=== PATIENT | female | born 1985 | race American Indian/Alaskan Native ===

== ENCOUNTER 2019-05-17 04:09 | Emergency (ER) | payer SELFPAY ==
[2019-05-17 04:27] VITALS: BP 102/67
== END 2019-05-17 08:00 | disposition left against medical advice (07) ==
LOC: ED 04:09
DX: R22.0 Localized swelling, mass and lump, head (principal); Z53.21 Procedure and treatment not carried out due to patient leaving prior to being seen by health care provider